=== PATIENT | female | born 1990 | race Caucasian/White ===

== ENCOUNTER 2020-09-07 07:02 | Emergency (ER) | payer BC ==
[~2020-09-07] VITALS: Wt 136.1 kg
[2020-09-07] MEDS ORDERED: AMLODIPINE BESYL5 MG PO (07:31)
[2020-09-07] MEDS ORDERED: FLONASE ALLERG9.9 ML NAS (07:31)
[2020-09-07] MEDS ORDERED: ZESTORETIC 20-1 EACH PO (07:32)
[2020-09-07 07:52] LABS: BASO % 0.4 % (0.0-1.0); EOS # 0.3 10*3/uL (0.0-0.4); EOS % 2.9 % (1.0-4.0); HEMATOCRIT 30.7 % (37.0-47.0); LYMPH # 2.6 10*3/uL (1.3-4.4); LYMPH % 28.4 % (27.0-41.0); MEAN CELL VOLUME 72.9 fl (81.0-99.0); MEAN CORPUSCULAR HGB 21.4 pg (27.0-31.0); MEAN CORPUSCULAR HGB CONC 29.3 g/dl (33.0-37.0); MEAN PLATELET VOLUME 9.2 fl (9.6-12.3); MONO # 0.7 10*3/uL (0.1-1.0); MONO % 7.2 % (3.0-9.0); NEUT # 5.6 10*3/uL (2.3-7.9); NEUT % 60.9 % (47.0-73.0); PLATELET COUNT AUTOMATED 339 10*3/uL (130-400); RED BLOOD COUNT 4.21 10*6/uL (4.10-5.10); RED CELL DISTRI WIDTH 17.5 % (0-14.5); WHITE BLOOD COUNT 9.2 10*3/uL (4.8-10.8)
[2020-09-07 08:37] LABS: BILIRUBIN 2+ (Negative); BLOOD 2+ (Negative); CLARITY Turbid (Clear); GLUCOSE Negative (Negative); KETONE Negative (Negative); LEUKO ESTERASE 2+ (Negative); NITRITE Positive (Negative); SPECIFIC GRAVITY 1.025 (1.001-1.030); UROBILINOGEN 0.2 E.U./dl (0.0-1.0)
[2020-09-07 08:39] LABS: COLOR Red (Yellow)
[2020-09-07 08:47] LABS: BACTERIA 2+; RBC TNTC rbc/hpf (0-2)
== END 2020-09-07 08:52 | disposition home or self-care (01) ==
LOC: ED 07:02
PROVIDERS: Student in an Organized Health Care Education/Training Program
DX: N93.8 Other specified abnormal uterine and vaginal bleeding (principal); R10.30 Lower abdominal pain, unspecified; Z79.899 Other long term (current) drug therapy